=== PATIENT | male | born 1945 | race Caucasian/White ===

== ENCOUNTER 2017-10-29 07:00 | Inpatient (IN) | payer OTHER ==
[2017-10-05 10:30] VITALS: BMI 29.0
--- NOTE | 2017-10-05 11:12 | PAT Medication Instructions ---
Service Date Oct 05, 2017. Current Home Medication List Folic Acid (Folic Acid), 1 TAB PO Q2D [arthro 7], 1 TAB PO QAM Medication Instructions For Your Scheduled Surgery - Hold the following medications 2 weeks prior to surgery: [arthro 7], 1 TAB PO QAM - Hold the following medications the morning of surgery: Folic Acid (Folic Acid), 1 TAB PO Q2D If you have any questions please call us at [phone] or [phone] or [phone]
--- NOTE | 2017-10-05 11:54 | DIAGNOSTIC IMAGING REPORT ---
CHEST 2 VIEWS ROUTINE CLINICAL HISTORY: 72 years-old Male presenting with preoperative assessment. TECHNIQUE: PA and lateral views of the chest were obtained. COMPARISON: None. FINDINGS: Atherosclerosis of aortic arch. Mild prominence of the cardiac silhouette. Eventration of the right hemidiaphragm. Punctate hyperdense nodules bilaterally may represent calcified granulomas. Lungs and pleural spaces otherwise clear. Degenerative changes of the thoracic spine. Radiolucency in the left scapula may be projectional versus a lucent lesion. Upper abdomen normal. IMPRESSION: 1. Mild cardiomegaly suggested. Otherwise no acute cardiopulmonary disease. 2. Possible lucent lesion versus artifact in the left scapula. Electronically signed by: Quentin Brown M.D. 10/05/2017 11:52 AM Dictated Date/Time: 10/05/2017 11:50 AM
[2017-10-05 12:06] LABS: BASO % 0.3 %; BASO ABS # 0.03 K/uL (0-0.2); EOS % 0.5 %; EOS ABS # 0.05 K/uL (0-0.5); HEMATOCRIT 46.9 % (42-52); HEMOGLOBIN 16.5 g/dL (14.0-18.0); IG# 0.05 K/uL (0.00-0.02); LYMPH % 15.1 %; LYMPH ABS # 1.59 K/uL (1.2-3.4); MEAN CELL VOLUME 89.5 fL (80-100); MEAN CORPUSCULAR HEMOGLOBIN 31.5 pg (25-34); MEAN CORPUSCULAR HGB CONC 35.2 g/dl (32-36); MEAN PLATELET VOLUME 10.3 fL (7.4-10.4); MONO ABS # 1.47 K/uL (0.11-0.59); NEUT % 69.6 %; NEUT ABS # 7.33 K/uL (1.4-6.5); PLATELET COUNT 250 K/uL (130-400); RED CELL DISTRIBUTION WIDTH CV 12.6 % (11.5-14.5); RED CELL DISTRIBUTION WIDTH SD 40.9 fL (36.4-46.3); WHITE BLOOD COUNT 10.52 K/uL (4.8-10.8)
[2017-10-05 12:14] LABS: PTT PATIENT 28.5 SECONDS (21.0-31.0)
[2017-10-05 12:26] LABS: HEMOGLOBIN A1C 6.1 % (4.5-5.6)
[2017-10-05 13:59] LABS: ALBUMIN 3.6 gm/dl (3.4-5.0); CALCIUM 9.1 mg/dl (8.5-10.1); CREATININE 0.86 mg/dl (0.60-1.40)
--- NOTE | 2017-10-27 21:49 | History and Physical ---
History & Physical Date Oct 27, 2017. Chief Complaint Right knee pain History of Present Illness The patient is a 72 year old male with complaints of Right knee pain for several years. he has tried conservative therapy with no relief. he would like to proceed with a Right total knee arthroplasty Past Medical/Surgical History PMHx: sleep apnea, Shortness of breath, osteoarthritis, GERD, Benign prostate hypertrophy Additional History Hepatic Disease: No Endocrine Disorder: No Kidney Disease: No Hypertension: No Heart Disease: No Bleeding Tendencies: No Infectious Diseases: No Allergies Coded Allergies: No Known Allergies (Unverified , 10/05/17) Home Medications Scheduled Folic Acid (Folic Acid), 1 TAB PO Q2D [arthro 7], 1 TAB PO QAM Physical Examination Skin: warm/dry, no rash Eyes: normal inspection, EOMI ENT: normal ENT inspection Head: normocephalic, atraumatic Neck: supple, no adenopathy Respiratory/Chest: lungs clear, normal breath sounds Cardiovascular: regular rate, rhythm, no murmur Abdomen / GI: normal bowel sounds, non tender Extremities: normal inspection, + pertinent finding (medial joint line tenderness, ligaments intact decreased ROM and strength) Neurologic/Psych: no motor/sensory deficits, alert, oriented x 3 Diagnosis Primary osteoarthritis of right knee Plan of Treatment Patient is scheduled for a Right total knee arthroplasty. he has failed conservative therapy and would like to proceed with scheduled surgery. Risks and benefits were discussed with the patient and he understands the risks and wishes to proceed. All questions were answered. he will be placed on ASA 81mg BID for DVT prophylaxis. he would like to go to home with OPPT
[2017-10-29] VITALS (9 sets, daily range): BP systolic 98–152; BP diastolic 61–93; PULSE 79–103; TEMP 36.3–36.6; O2SAT 94–96; Ht 177.8 cm; Wt 93.3 kg
[~2017-10-29] VITALS: Ht 177.8 cm; Wt 93.3 kg
[~2017-10-29 07:00] MED LIST: ACETAMINOPHEN 500 MG TAB PO SCH; ARTHRO PO; BUPIVACAINE 0.25% 30 ML VIAL ONE; BUPIVACAINE 0.5 % 5 MG/1 ML PF 10ML VIAL ONE; DEXAMETHASONE 4 MG TAB PO SCH; FAMOTIDINE 20 MG TAB PO SCH; FLV1 PO; GABAPENTIN 300 MG CAP PO SCH; LACTATED RINGER'S 1000ML 1,000 ML IV SCH; LACTATED RINGER'S 1000ML 500 ML IV SCH; METOCLOPRAMIDE HCL 10 MG TAB PO SCH; OXYCODONE HCL 10 MG TABCR (OXYCONTIN) PO SCH
[2017-10-29] MEDS ORDERED: MIDAZOLAM HCL 1 MG/ML 2ML VIAL ONE ×2 (07:30→09:27)
[2017-10-29] MEDS ORDERED: FENTANYL CITRATE INJ 50 MCG/1 ML 2 ML VIAL ONE (07:30)
[2017-10-29] MEDS ORDERED: PROPOFOL IV EMULSION 10 MG/ML 20 ML VIAL IV ONE ×3 (07:30→09:59)
--- NOTE | 2017-10-29 07:53 | History & Physical Bridge Note ---
H&P Re-Evaluation Bridge Note: I have examined the patient, reviewed the History & Physical and in the interval since the performance of the History & Physical I have noted the following changes of clinical significance: No changes noted
[2017-10-29] MEDS ORDERED: NURSING VERBAL MED ORDER ONE (08:00)
[2017-10-29] MEDS ORDERED: EpHEDrine SULFATE INJ 50 MG/ML AMP IV PRN (08:15)
[2017-10-29] MEDS ORDERED: FENTANYL CITRATE INJ 50 MCG/1 ML 2 ML VIAL IV PRN (08:15)
[2017-10-29] MEDS ORDERED: ONDANSETRON INJ 2 MG/ML 2 ML VIAL IV PRN ×2 (08:15→11:30)
[2017-10-29] MEDS ORDERED: HYDROmorphone INJ 1 MG/ML SYR IV PRN (08:15)
[2017-10-29] MEDS ORDERED: ATROPINE SULFATE 0.1 MG/ML 5ML SYR IV PRN (08:15)
[2017-10-29] MEDS ORDERED: BACITRACIN 50000 UNIT VIAL ONE (08:45)
[2017-10-29] MEDS ORDERED: POVIDONE-IODINE OP SOLN 30 ML BTL ONE (08:45)
[2017-10-29] MEDS: TRANEXAMIC ACID INJ 1,000 MG in SYRINGE 0 ML IV SCH ×2 (08:56→12:52)
[2017-10-29] MEDS: CEFAZOLIN 2000MG IV PUSH 10 ML IV SCH ×2 (09:21→16:01)
[2017-10-29] MEDS ORDERED: ROPIVACAINE 5MG/ML 30 ML 150 MG, BUPIVACAINE 0.5% MPF INJ 30 ML, EpINEphrine HCL INJ 0.... INFIL SCH ×8 (09:30)
[2017-10-29] MEDS ORDERED: PHENYLEPHRINE 100MCG/ML 5ML SYR ONE (10:05)
[2017-10-29] MEDS ORDERED: EpHEDrine SULFATE 50MG/5ML SYR ONE (10:05)
--- NOTE | 2017-10-29 10:55 | [facility] Operative Report ---
Operative Report Operative Date Oct 29, 2017. Pre-Operative Diagnosis Primary osteoarthritis of the right knee Post-Operative Diagnosis Primary osteoarthritis of the right knee Procedure(s) Performed Right total knee arthroplasty Surgeon Dr. Melo Wreath Maker Surgeon(s) Nwe Millard PA-C Estimated Blood Loss 5cc Findings as above Specimens A. Right knee bone and tissue Drains 2 hemovac Anesthesia spinal Complication(s) None Disposition Recovery Room / PACU Indications The patient is a 72 mL male with end-stage arthritis the right knee. He is bone -on-bone in all 3 compartments. He has failed conservative measures including anti-inflammatories and injection. He wishes to proceed with right total knee arthroplasty. Description of Procedure Risks benefits and alternatives of surgery including but not limited to infection, DVT, pain, stiffness, need for surgery, damage to blood vessels, damage to nerves or risks of anesthesia were discussed with the patient and they wished to proceed. The patient was identified and the laterality was confirmed and marked. They received a preoperative antibiotic as well as a spinal anesthetic and an abductor canal block. A well-padded tourniquet was applied and then the limb was prepped and draped in standard manner with ChloraPrep. The limb was exsanguinated and the tourniquet was inflated. I made a standard anterior incision. I sharply incised the skin then utilized Bovie electrocautery as well as the aqua mantis to achieve hemostasis. I made a medial parapatellar arthrotomy and mobilized the patella laterally. I then excised the anterior horns of the medial and lateral meniscus as well as the infrapatellar fat pad. I elevated a portion of the MCL off of the tibia. I then pinned into place a patient-matched distal femoral cutting guide and made my distal femoral resection. I then pinned into place the 5 in 1 femoral cutting guide. I made my anterior, posterior and chamfer cuts. I then excised the cruciates and the remaining portions of the menisci. I then pinned into place a patient- matched tibial cutting guide and made my tibial resection. I then pinned into place the tibial plate a utilizing alignment eliu to confirm rotation. I then cut for the post. Utilizing a lamina seismograph helper and I then removed posterior osteophytes off the femur. I then placed a trial femur into position and cut for the trochlear component. I then sequentially trialed to size the polyethylene until there was good soft tissue balancing and range of motion. I then prepared the patella with a freehand cut utilizing sagittal saw. I sized and drilled for the patella. There was good tracking to the patella no lateral release was needed. All the trial components were removed. The deep tissues were anesthetized with an ortho mix solution. Then with Simplex HV with gentamicin cement, I cemented my definitive components. Definitive components, [employer] Journey 2: Femur 7 Tibia 7 Poly 12 Patella 38 oval A betadine soak was performed. A deep drain was placed. The arthrotomy was closed with interrupted #1 Vicryl suture subcutaneous tissue was closed with interrupted 2-0 Vicryl suture. The skin was closed with with marcus. A Silverlon was placed. Sterile dressings were applied. All needle and sponge counts were correct at the end of the procedure patient was transferred to the PACU in stable condition without apparent complication. The PA-C was necessary for assistance with procedure for assistance in positioning, prepping, draping, retraction and closure. I attest to the content of the Intraoperative Record and any orders documented therein. Any exceptions are noted below.
[2017-10-29] MEDS ORDERED: ALUMINUM/MAGNESIUM/SIMETH (MAALOX MAX) 30 ML UDC PO PRN (11:30)
[2017-10-29] MEDS ORDERED: CEFAZOLIN IV 2,000 MG in DEXTROSE 5% 50ML 50 ML IV SCH (11:30)
[2017-10-29] MEDS ORDERED: TRAMADOL HCL 50 MG TAB PO PRN (11:30)
[2017-10-29] MEDS ORDERED: MoRPHine SULFATE 2 MG/ML CARP IV PRN (11:30)
[2017-10-29] MEDS ORDERED: MoRPHine SULFATE 4 MG/ML 1 ML CARP\\VIAL IV PRN (11:30)
[2017-10-29] MEDS ORDERED: MAGNESIUM HYDROXIDE SUSP 30 ML UDC PO PRN (11:30)
--- NOTE | 2017-10-29 11:47 | DIAGNOSTIC IMAGING REPORT ---
R KNEE 1 OR 2 VIEWS ROUTINE CLINICAL HISTORY: AP/LATERAL IN PACU RIGHT KNEE COMPARISON: None. DISCUSSION: Ancef alignment status post right knee replacement. Good contact between prosthetic and underlying bone. Surgical drains are in position. Expected postoperative soft tissue change. IMPRESSION: Anatomic alignment status post total right knee arthroplasty. The above report was generated using voice recognition software. It may contain grammatical, syntax or spelling errors. Electronically signed by: Ubaldo Jeff M.D. 10/29/2017 11:46 AM Dictated Date/Time: 10/29/2017 11:45 AM
--- NOTE | 2017-10-29 11:53 | Anesthesiology Progress Note ---
Anesthesia Post Op Note Date & Time Oct 29, 2017 at 11:53 Vital Signs Pain Intensity: 0 Vital Signs Past 12 Hours Date Time Temp Pulse Resp B/P (MAP) Pulse Ox O2 Delivery O2 Flow Rate FiO2 10/29/17 11:45 79 16 106/71 94 Nasal Cannula 2 10/29/17 11:35 77 16 112/75 98 Nasal Cannula 2 10/29/17 11:25 81 16 111/65 98 Oxymask 10 10/29/17 11:19 36. 84 16 113/75 95 Oxymask 10 10/29/17 07:29 36.3 92 16 131/93 95 Room Air Notes Mental Status: alert / awake / arousable, participated in evaluation Pt Amnestic to Procedure: Yes Nausea / Vomiting: adequately controlled Pain: adequately controlled Airway Patency, RR, SpO2: stable & adequate BP & HR: stable & adequate Hydration State: stable & adequate Neuraxial Anesthesia: was administered, sensory block is resolving Anesthetic Complications: no major complications apparent
--- NOTE | 2017-10-29 13:20 | Discharge Instructions ---
Discharge Instructions Date of Service Oct 29, 2017. Admission Reason for Admission: Right Knee Osteoarthritis Discharge Discharge Diagnosis / Problem: S/P Right total knee arthroplasty Discharge Goals Goal(s): Decrease discomfort, Improve function Activity Recommendations Activity Limitations: per Instructions/Follow-up section . Instructions / Follow-Up Instructions / Follow-Up ACTIVITY RECOMMENDATIONS: SELF CARE INSTRUCTIONS AFTER TOTAL KNEE REPLACEMENT A. You may need to continue a physical therapy program after discharge from the hospital. There are several options available to you. Your doctor will assist you in selecting the best one for you. 1. An out-patient facility 2 to 3 times a week for therapy or home therapy. 2. Continue working on all exercises taught to you in the hospital. Your goals should be to increase bending of your knee to 90 degrees and beyond and to fully straighten your knee. B. You may progress at your own pace from walking with a walker or crutches to a cane; then to no assistive devices. C. Make walking a part of your daily routine. Be up as much as comfortable with rest periods throughout the day. Rest with leg elevation is very important. Use the ice wrap frequently for the first 3-4 weeks. D. There are no restrictions on activities. You may ride in a car, shop, participate in auto parts clerk and all social activities. E. Wear the long elastic stockings (DENISE hose) 20 hours a day for 2 weeks after surgery. They can be removed several times a day for laundering and for a bath. F. You may shower, no tub baths until cleared by your doctor. SPECIAL CARE INSTRUCTIONS: VERY IMPORTANT TO READ AND REVIEW A. There are a few signs you need to watch for after you are home. Call [facility] if you notice any of the followin. Increased severe knee pain. Some pain is expected especially when you exercise. 2. Increased swelling in your leg or knee; pain or swelling of the calf muscle in either lower leg. 3. Any fluid drainage from the incision. 4. Shortness of breath or chest pain. B. Please call [facility] at if you have any concerns or questions about your operation or recovery. The doctor or his nurse will return your call promptly. C. You must take antibiotics before dental work, bladder, bowel or other surgery. Your doctor will provide you with a permanent care to carry describing this precaution. IMPORTANT: * REMEMBER TO TAKE ASPIRIN, 81 MG, TWICE DAILY FOR 4 WEEKS UNLESS OTHERWISE DIRECTED. THIS IS YOUR BLOOD THINNER. * CALL IF INCREASED PAIN, REDNESS, DRAINAGE OR FEVER GREATER THAT 101. * WEAR DENISE HOSE 20 HOURS PER DAY FOR 2 WEEKS. * YOU MAY HAVE A LARGE BAND-AID LIKE DRESSING (SILVERON). THIS WILL REMAIN ON YOUR INCISION FOR 7 DAYS, THEN CAN BE REMOVED. IF INCISION IS LEAKING THROUGH DRESSING, CALL THE OFFICE . FOLLOW UP VISIT: If appointment is not already scheduled: Please call [facility] to make a follow-up appointment for 2 weeks after your surgery with Dr. Melo or his PA at . Current Hospital Diet Patient's current hospital diet: Regular Diet Discharge Diet Recommended Diet: Regular Diet Procedures Procedures Performed: Right total knee arthroplasty Pending Studies Studies pending at discharge: no Laboratory Results Hemoglobin A1c Test 10/05/17 11:24 Range/Units Estimated Average Glucose 128 mg/dl Hemoglobin A1c 6.1 H 4.5-5.6 % Medical Emergencies . Who to Call and When: Medical Emergencies: If at any time you feel your situation is an emergency, please call 911 immediately. . Non-Emergent Contact Non-Emergency issues call your: Surgeon Call Non-Emergent contact if: temperature is above 101.5, your pain is worsening, wound has increased drainage, wound has increased redness . "Provider Documentation" section prepared by Raf Stacy. . VTE Core Measure Inpt VTE Proph given/why not?: Other Anticoagulation (Aspirin 81mg BID) [place] Drug Monitoring Program Search Results: patient reviewed within database, no issues identified
[2017-10-29] MEDS ORDERED: RXC5 PO (13:27)
[2017-10-29] MEDS: D5W AND 1/2NSS + 20MEQ KCL 1,000 ML IV SCH ×2 (14:18→23:40)
[2017-10-29] MEDS: ACETAMINOPHEN 500 MG TAB PO SCH ×2 (14:38→21:31)
[2017-10-29] MEDS ORDERED: INFLUENZA ADMINISTRATION CHARGE ONE (16:00)
[2017-10-29] MEDS ORDERED: INFLUENZA VIRUS QUAD VACCINE 0.5 ML SYR IM. ONE (16:00)
[2017-10-29] MEDS: CEFAZOLIN IV 2,000 MG in SYRINGE 0 ML IV SCH ×2 (16:11→23:40)
[2017-10-29] MEDS: OXYCODONE HCL IR 5 MG TAB (IMMEDIATE RELEASE) PO PRN ×2 (17:15→20:58)
[2017-10-29] MEDS: FERROUS GLUCONATE 324 MG TAB PO SCH (18:22)
[2017-10-29] MEDS: SENNA 8.6 MG TAB PO SCH (21:30)
[2017-10-29] MEDS: DOCUSATE SODIUM 100 MG CAP PO SCH (21:30)
[2017-10-29] MEDS: ASPIRIN 81 MG ECTAB PO SCH (21:30)
[2017-10-29] MEDS: CeleBREX 200 MG CAP PO SCH (21:31)
[2017-10-30 03:43] VITALS: BP 126/73; PULSE 68; TEMP 36.5; O2SAT 95
[2017-10-30] MEDS: ACETAMINOPHEN 500 MG TAB PO SCH ×3 (06:00→21:56)
[2017-10-30 06:20] LABS: HEMATOCRIT 39.1 % (42-52); HEMOGLOBIN 13.7 g/dL (14.0-18.0); MEAN CELL VOLUME 87.9 fL (80-100); MEAN CORPUSCULAR HEMOGLOBIN 30.8 pg (25-34); MEAN PLATELET VOLUME 10.5 fL (7.4-10.4); PLATELET COUNT 207 K/uL (130-400); RED CELL DISTRIBUTION WIDTH CV 12.8 % (11.5-14.5); RED CELL DISTRIBUTION WIDTH SD 41.4 fL (36.4-46.3); WHITE BLOOD COUNT 15.53 K/uL (4.8-10.8)
[2017-10-30 07:00] LABS: CALCIUM 8.9 mg/dl (8.5-10.1); CREATININE 0.83 mg/dl (0.60-1.40); POTASSIUM 4.3 mmol/L (3.5-5.1)
--- NOTE | 2017-10-30 07:02 | Orthopedic Progress Note ---
Orthopedic Progress Note Date of Service Oct 30, 2017. Subjective Post OP Day: 1 Reports: feeling well, pain controlled w PO medications, Denies: complaints, chest pain, SOB, nausea / vomiting, calf pain Objective calves soft nontender, N/V intact, capillary refill less than 2 sec., dressing C /D/I, A&O x3, toes mobile, hemovac drainage (400cc/225cc) Date Time Temp Pulse Resp B/P (MAP) Pulse Ox O2 Delivery O2 Flow Rate FiO2 10/30/17 03:43 36.5 68 16 126/73 (90) 95 Room Air 10/29/17 23:07 36.6 85 18 146/85 (105) 94 Room Air 10/29/17 19:52 36.5 103 18 152/87 (108) 96 Room Air 10/29/17 19:50 Room Air 10/29/17 15:24 36.3 93 18 135/83 (100) 96 Nasal Cannula 2.5 10/29/17 15:15 96 Room Air 10/29/17 14:24 91 12 135/74 (94) 96 Nasal Cannula 3.0 10/29/17 13:33 36.4 89 19 124/67 (86) 94 Nasal Cannula 2.0 10/29/17 12:58 36.6 79 18 104/61 (75) 95 Nasal Cannula 2.0 10/29/17 12:20 36.5 81 18 98/61 (73) 96 Nasal Cannula 3.0 10/29/17 12:20 96 Nasal Cannula 3.0 10/29/17 12:20 96 Nasal Cannula 3.0 10/29/17 11:55 36.7 77 16 121/72 95 Nasal Cannula 2 10/29/17 11:45 79 16 106/71 94 Nasal Cannula 2 10/29/17 11:35 77 16 112/75 98 Nasal Cannula 2 10/29/17 11:25 81 16 111/65 98 Oxymask 10 10/29/17 11:19 36. 84 16 113/75 95 Oxymask 10 10/29/17 07:29 36.3 92 16 131/93 95 Room Air Laboratory Results 24 Hours: Test 10/30/17 05:55 Hematocrit 39.1 % Hemoglobin 13.7 g/dL Assessment & Plan Assessment: POD#1 Right TKA Plan: DVT - ASA Medical Management PT/OT Discharge - due to too much drainage he will not be discharged today. Hopeful for discharge tomorrow home with OPPT.
[2017-10-30 07:56] VITALS: BP 154/82; PULSE 64; TEMP 36.5; O2SAT 96
[2017-10-30] MEDS: FERROUS GLUCONATE 324 MG TAB PO SCH ×3 (08:36→17:51)
[2017-10-30] MEDS: DOCUSATE SODIUM 100 MG CAP PO SCH ×2 (08:37→20:49)
[2017-10-30] MEDS: ASPIRIN 81 MG ECTAB PO SCH ×2 (08:37→20:48)
[2017-10-30] MEDS: MULTIVITAMIN TAB PO SCH (08:37)
[2017-10-30] MEDS: CeleBREX 200 MG CAP PO SCH ×2 (08:37→20:48)
[2017-10-30 08:42] VITALS: O2SAT 96
[2017-10-30] MEDS: D5W AND 1/2NSS + 20MEQ KCL 1,000 ML IV SCH (08:52)
[2017-10-30] MEDS: OXYCODONE HCL IR 5 MG TAB (IMMEDIATE RELEASE) PO PRN ×2 (11:12→17:53)
[2017-10-30 12:00] VITALS: BP 130/74; PULSE 73; TEMP 36.5; O2SAT 93
[2017-10-30 14:58] VITALS: BP 165/90; PULSE 85; TEMP 36.4; O2SAT 98
[2017-10-30] MEDS: SENNA 8.6 MG TAB PO SCH (20:48)
[2017-10-30 22:54] VITALS: BP 146/84; PULSE 72; TEMP 36.7; O2SAT 94
[2017-10-31] MEDS: OXYCODONE HCL IR 5 MG TAB (IMMEDIATE RELEASE) PO PRN ×3 (00:33→10:47)
[2017-10-31] MEDS: ACETAMINOPHEN 500 MG TAB PO SCH (05:28)
--- NOTE | 2017-10-31 06:18 | Orthopedic Progress Note ---
Orthopedic Progress Note Date of Service Oct 31, 2017. Subjective Post OP Day: 2 Reports: feeling well, pain controlled w PO medications, Denies: complaints, chest pain, SOB, nausea / vomiting, light headedness, calf pain Objective calves soft nontender, N/V intact, capillary refill less than 2 sec., dressing C /D/I (silverlon intact), A&O x3, toes mobile Date Time Temp Pulse Resp B/P (MAP) Pulse Ox O2 Delivery O2 Flow Rate FiO2 10/30/17 23:05 Room Air 10/30/17 22:54 36.7 72 18 146/84 (104) 94 Room Air 10/30/17 15:50 Room Air 10/30/17 14:58 36.4 85 18 165/90 (115) 98 Room Air 10/30/17 12:00 36.5 73 22 130/74 (92) 93 Room Air 10/30/17 08:42 96 Room Air 10/30/17 08:07 Room Air 10/30/17 07:56 36.5 64 20 154/82 (106) 96 Room Air Assessment & Plan Assessment: POD#2 Right TKA Plan: DVT - ASA Medical Management PT/OT Discharge - will d/c home later today after PT Discharge Planning Discharge Planning: home with oppt DVT Prophylaxis: TEDs, SCDs, ASA Therapy: Physical Therapy
[2017-10-31] MEDS ORDERED: ASPEC81 PO (06:20)
[2017-10-31] MEDS ORDERED: ONDA8TAB6 PO (06:20)
[2017-10-31] MEDS ORDERED: CLB200 PO (06:20)
[2017-10-31] MEDS ORDERED: CLC100 PO (06:20)
[2017-10-31] MEDS ORDERED: ACET-24 PO (06:20)
[2017-10-31 06:33] VITALS: BP 161/86; PULSE 65; TEMP 36.7; O2SAT 97
[2017-10-31] MEDS: DOCUSATE SODIUM 100 MG CAP PO SCH (07:43)
[2017-10-31] MEDS: ASPIRIN 81 MG ECTAB PO SCH (07:43)
[2017-10-31] MEDS: FERROUS GLUCONATE 324 MG TAB PO SCH (07:43)
[2017-10-31] MEDS: CeleBREX 200 MG CAP PO SCH (07:43)
[2017-10-31] MEDS: MULTIVITAMIN TAB PO SCH (07:44)
[2017-10-31 09:00] VITALS: BP 138/73; PULSE 76; O2SAT 98
[2017-10-31 09:10] VITALS: BP 138/73; PULSE 76; TEMP 36.7; O2SAT 98
--- NOTE | 2017-11-02 14:18 | DISCHARGE SUMMARY ---
DISCHARGE DIAGNOSIS: Degenerative joint disease, right knee. SECONDARY DIAGNOSES: Sleep apnea, osteoarthritis, gastroesophageal reflux disease, benign prostatic hypertrophy, and shortness of breath. CONSULTS: None. COMPLICATIONS: None. PROCEDURE: Right total knee arthroplasty performed by Dr. Melo on 10/29/2017. BRIEF HISTORY: As dictated in the history and physical. HOSPITAL SUMMARY: The patient was admitted on the above-noted date and had the above-noted surgery performed, which he tolerated well. On the first postoperative day, the patient was feeling well and pain was controlled and he had no complaints. Calves were soft, nontender, and neurovascularly intact. Dressings clean, dry and intact. Toes were mobile. Vital signs stable and he was afebrile and hemoglobin was 13.7. He was started on physical therapy protocol and continued on DVT prophylaxis and pain management. By his second postoperative day, he was feeling well, pain was controlled and he had no complaints. Silverlon dressing was intact. Toes were mobile. Calves were soft and nontender, and neurovascularly intact. He was progressing well with his physical therapy. Vital signs were remaining stable and it was felt he could be discharged to home. For further review, please see chart. LAB AND X-RAY DATA: As per chart. DISCHARGE INSTRUCTIONS: The patient was discharged to home in satisfactory condition on 10/31/2017. DIET: Regular. ACTIVITY: Follow TKA instruction sheets and special care instructions as noted. Follow up with Dr. Melo in 2 weeks. The patient is to call for an appointment if one has not been made for you. DISCHARGE MEDICATIONS: Acetaminophen 1000 mg p.o. q. 8 hours, aspirin 81 mg p.o. b.i.d., Celebrex 200 mg p.o. b.i.d. for 30 days, Colace 100 mg p.o. b.i.d. for 10 days, Zofran 8 mg p.o. q. 8 hours p.r.n. nausea, and oxycodone 5-10 mg p.o. q. 4 hours p.r.n. Resume home meds as listed and stop taking Arthro-7.
== END 2017-10-31 11:06 | disposition home or self-care (01) | DRG 470 ==
LOC: C.ACU 07:00 → C.3E 07:50 → ENRESERV 11:49
PROVIDERS: ADMIT Orthopaedic Surgery; ATTEND Orthopaedic Surgery
PROC: 0SRC0J9 Replacement of Right Knee Joint with Synthetic Substitute, Cemented, Open Approach (ICD-10-PCS; principal; 2017-10-29 09:15)
DX: M17.11 Unilateral primary osteoarthritis, right knee (principal); G47.33 Obstructive sleep apnea (adult) (pediatric)

== ENCOUNTER 2018-02-19 06:15 | Inpatient (IN) | payer OTHER ==
--- NOTE | 2018-01-25 10:05 | HISTORY & PHYSICAL EXAMINATION ---
DATE OF ADMISSION: 02/19/2018 CHIEF COMPLAINT: Left knee pain. HISTORY OF PRESENT ILLNESS: The patient is a 72-year-old male that complains of left knee pain for several years. He has tried conservative therapy with no relief. He would like to proceed with a left total knee arthroplasty. PAST MEDICAL HISTORY: Significant for sleep apnea, shortness of breath, osteoarthritis, GERD and benign prostate hypertrophy. PAST SURGICAL HISTORY: Significant for varicose veins of the left leg, carpal tunnel and right knee replacement. SOCIAL HISTORY: He denies alcohol. Denies smoking or tobacco use. Denies IV or illegal drug use. FAMILY HISTORY: Noncontributory. REVIEW OF SYSTEMS: He denies headache, fevers, chills, double vision, blurry vision, sore throat, cough, chest pain, nausea, vomiting, diarrhea, constipation, numbness, tingling, tired and urinary difficulties, thoughts to harm himself or harm others and/or depression. He is positive for joint pain and joint stiffness of the left knee. ALLERGIES: No known drug allergies. MEDICATIONS: Mobic and Oxycodone as needed for pain. PHYSICAL EXAMINATION: GENERAL APPEARANCE: The patient is a 72-year-old male sitting in no acute distress. He is well dressed, well nourished. He is awake, alert and oriented x3. VITAL SIGNS: He is 5 feet 10 inches tall, 204 pounds, blood pressure 126/70. HEENT: Normocephalic, atraumatic. Extraocular movements are intact. Mucosa is moist. No septal deviation. NECK: Supple, no lymphadenopathy, no JVD, no thyromegaly. HEART: Regular rate and rhythm. No murmurs or gallops. LUNGS: Clear to auscultation with no wheezing or rhonchi. ABDOMEN: Soft, nontender, nondistended. Normal bowel sounds, no hepatosplenomegaly. EXTREMITIES: Paying particular attention to the left knee, he does have medial joint line tenderness. Ligaments are intact. Strength and range of motion are within normal limits. NEUROLOGIC: Cranial nerves II-XII are intact. Pulses were compared bilaterally and were equal. IMAGING: X-rays of his left knee demonstrated medial joint line narrowing with osteophyte formation and subchondral sclerosis. IMPRESSION: Primary osteoarthritis of the left knee. PLAN: The patient is scheduled for a left total knee arthroplasty. He has failed conservative therapy and would like to proceed with the scheduled surgery. Risks and benefits were discussed with the patient. He understands these risks and he wishes to proceed. All questions were answered to his satisfaction. He will be placed on aspirin 81 mg b.i.d. for DVT prophylaxis and he would like to go home with outpatient physical therapy. NETO
[2018-01-25 10:29] VITALS: BMI 29.0
--- NOTE | 2018-01-25 11:04 | PAT Medication Instructions ---
Service Date Jan 25, 2018. Current Home Medication List Aspirin (Aspirin Ec), 81 MG PO QAM Ergocalciferol (Vitamin D 06055 Unit), 50,000 UNIT PO WK Meloxicam (Meloxicam), 1 TAB PO QAM [arthro seven], 1 TAB PO QAM Medication Instructions For Your Scheduled Surgery -Continue as directed: Ergocalciferol (Vitamin D 54848 Unit), 50,000 UNIT PO WK -Contact your surgeon for instructions for: Meloxicam (Meloxicam), 1 TAB PO QAM - Hold the following medications 2 weeks prior to surgery: [arthro seven], 1 TAB PO QAM - Take the following medications the morning of surgery with a sip of water: Aspirin (Aspirin Ec), 81 MG PO QAM If you have any questions please call us at [phone] or [phone] or [phone]
--- NOTE | 2018-01-25 11:55 | DIAGNOSTIC IMAGING REPORT ---
CERVICAL SPINE 2 OR 3 VIEWS CLINICAL HISTORY: 72 years-old Male presenting with pre-op, RA; lateral neutral, flexion, extension. TECHNIQUE: Lateral views of the cervical spine in neutral, flexion, and extension positioning were obtained. COMPARISON: None. FINDINGS: On neutral positioning, straightening of normal cervical lordosis in the lower cervical spine, likely due to multilevel degenerative changes with a lower cervical predominance. Vertebral bodies maintain normal height and alignment. Intervertebral disc height loss at C5-6 and C6-7, where there are disc osteophyte complexes, no significant posterior bony spurring. No subluxation or radiographic evidence of acute fracture. 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 Normal predental interval. No prevertebral soft tissue swelling. The atlantodental interval demonstrates only minimal degenerative change. On flexion positioning, no subluxation. On extension positioning, similarly, no subluxation. IMPRESSION: 1. No subluxation on flexion or extension positioning. 2. Only minimal degenerative change of the lateral dental interval. 3. Disc osteophyte complexes at C5-6 and C6-7. Electronically signed by: Quentin Brown M.D. 01/25/2018 11:54 AM Dictated Date/Time: 01/25/2018 11:52 AM
[2018-01-25 12:01] LABS: MEAN CORPUSCULAR HGB CONC 34.4 g/dl (32-36); MEAN PLATELET VOLUME 10.9 fL (7.4-10.4); PLATELET COUNT 244 K/uL (130-400)
[2018-01-25 12:48] LABS: HEMOGLOBIN 15.5 g/dL (14.0-18.0); MEAN CELL VOLUME 87.4 fL (80-100); MEAN CORPUSCULAR HEMOGLOBIN 30.1 pg (25-34); RED CELL DISTRIBUTION WIDTH CV 13.7 % (11.5-14.5); RED CELL DISTRIBUTION WIDTH SD 43.9 fL (36.4-46.3); WHITE BLOOD COUNT 7.22 K/uL (4.8-10.8)
[2018-01-25 13:25] LABS: HEMOGLOBIN A1C 5.9 % (4.5-5.6)
[2018-01-25 14:23] LABS: ALBUMIN 3.9 gm/dl (3.4-5.0); CALCIUM 9.1 mg/dl (8.5-10.1); CREATININE 0.69 mg/dl (0.60-1.40); POTASSIUM 4.3 mmol/L (3.5-5.1)
[2018-01-25 14:26] LABS: TOTAL PROTEIN 7.6 gm/dl (6.4-8.2)
[~2018-02-19] VITALS: Ht 177.8 cm; Wt 92.9 kg
[2018-02-19] VITALS (8 sets, daily range): BP systolic 111–145; BP diastolic 72–89; PULSE 63–80; TEMP 36.4–36.6; O2SAT 92–96; Ht 177.8 cm; Wt 92.9 kg
[~2018-02-19 06:15] MED LIST changes: -ARTHRO PO; +ASPI81TA28 PO; -BUPIVACAINE 0.25% 30 ML VIAL ONE; -BUPIVACAINE 0.5 % 5 MG/1 ML PF 10ML VIAL ONE; +CEFAZOLIN 2000MG IV PUSH 15 ML IV SCH; +CeleBREX 200 MG CAP PO SCH; +ERGO500037 PO; -FLV1 PO; +LIDOCAINE HCL 2% 2 ML VIAL (20MG/ML) ONE; +MELO-83 PO; +PROPOFOL IV EMULSION 10 MG/ML 20 ML VIAL IV ONE; +ROPIVACAINE 5MG/ML 30 ML 150 MG, BUPIVACAINE 0.5% MPF INJ 30 ML, EpINEphrine HCL INJ 0.... INFIL SCH; +[UNRECOGNIZED DRUG - OTHER] PO
[2018-02-19] MEDS: TRANEXAMIC ACID INJ 1,000 MG x 2 Bags IV SCH ×4 (06:30→09:25)
[2018-02-19] MEDS ORDERED: ROPIVACAINE 0.5% 5 MG/ML 30 ML VIAL ONE (06:36)
[2018-02-19] MEDS ORDERED: BUPIVACAINE 0.5 % 5 MG/1 ML PF 10ML VIAL ONE (06:36)
[2018-02-19] MEDS ORDERED: CeleBREX 200 MG CAP ONE (07:22)
[2018-02-19] MEDS ORDERED: METOCLOPRAMIDE HCL 10 MG TAB PO ONE (07:23)
[2018-02-19] MEDS ORDERED: FAMOTIDINE 20 MG TAB ONE (07:23)
[2018-02-19] MEDS ORDERED: GABAPENTIN 300 MG CAP PO ONE (07:23)
[2018-02-19] MEDS ORDERED: OXYCODONE HCL 10 MG TABCR (OXYCONTIN) PO ONE (07:23)
[2018-02-19] MEDS ORDERED: ACETAMINOPHEN 500 MG TAB PO ONE (07:23)
[2018-02-19] MEDS ORDERED: CEFAZOLIN SOD 2000MG/15 ML IV PUSH IV ONE (07:23)
[2018-02-19] MEDS ORDERED: DEXAMETHASONE 4 MG TAB ONE (07:23)
[2018-02-19] MEDS ORDERED: MIDAZOLAM HCL 1 MG/ML 2ML VIAL ONE (08:54)
[2018-02-19] MEDS ORDERED: POVIDONE-IODINE OP SOLN 30 ML BTL ONE (09:36)
[2018-02-19] MEDS ORDERED: BACITRACIN 50000 UNIT VIAL ONE (09:36)
[2018-02-19] MEDS ORDERED: LABETALOL HCL IV 5 MG/ML 20ML IV PRN (11:00)
[2018-02-19] MEDS ORDERED: ONDANSETRON INJ 2 MG/ML 2 ML VIAL IV PRN ×2 (11:00→11:30)
[2018-02-19] MEDS ORDERED: EpHEDrine SULFATE INJ 50 MG/ML AMP IV PRN (11:00)
[2018-02-19] MEDS ORDERED: HYDROmorphone INJ 2 MG/ML SYR/VIAL IV PRN (11:00)
[2018-02-19] MEDS ORDERED: ATROPINE SULFATE 0.1 MG/ML 5ML SYR IV PRN (11:00)
[2018-02-19] MEDS ORDERED: FENTANYL CITRATE INJ 50 MCG/1 ML 2 ML VIAL IV PRN (11:00)
[2018-02-19] MEDS ORDERED: MEPERIDINE HCL 25 MG/ML CARP IV PRN (11:00)
--- NOTE | 2018-02-19 11:25 | [facility] Operative Report ---
Operative Report Operative Date Feb 19, 2018. Pre-Operative Diagnosis Primary Osteoarthritis of the Left Knee Post-Operative Diagnosis same as preop Procedure(s) Performed Left total knee arthroplasty Surgeon Dr. Quentin Melo [place] Surgeon(s) [place] PA-C Estimated Blood Loss 20 ml Specimens Permanent: A. Left Knee Bone and Tissue Drains 2 hemovac Anesthesia Type MAC Spinal Regional Complication(s) none Disposition Recovery Room / PACU Indications The patient is a 72-year-old male with long-standing osteoarthritis of the left knee. He has failed conservative measures including injection anti- inflammatories and rehab. He is [id number] in his x-rays and wishes to need with a left total knee arthroplasty Description of Procedure Risks benefits and alternatives of surgery including but not limited to infection, DVT, pain, stiffness, need for surgery, damage to blood vessels, damage to nerves or risks of anesthesia were discussed with the patient and they wished to proceed. The patient was identified and the laterality was confirmed and marked. They received a preoperative antibiotic as well as a spinal anesthetic and an abductor canal block. A well-padded tourniquet was applied and then the limb was prepped and draped in standard manner with ChloraPrep. The limb was exsanguinated and the tourniquet was inflated. I made a standard anterior incision. I sharply incised the skin then utilized Bovie electrocautery as well as the aqua mantis to achieve hemostasis. I made a medial parapatellar arthrotomy and mobilized the patella laterally. I then excised the anterior horns of the medial and lateral meniscus as well as the infrapatellar fat pad. I elevated a portion of the MCL off of the tibia. I then pinned into place a patient-matched distal femoral cutting guide and made my distal femoral resection. I then pinned into place the 5 in 1 femoral cutting guide. I made my anterior, posterior and chamfer cuts. I then excised the cruciates and the remaining portions of the menisci. I then pinned into place a patient- matched tibial cutting guide and made my tibial resection. I then pinned into place the tibial plate a utilizing alignment eliu to confirm rotation. I then cut for the post. Utilizing a lamina mica spreader and I then removed posterior osteophytes off the femur. I then placed a trial femur into position and cut for the trochlear component. I then sequentially trialed to size the polyethylene until there was good soft tissue balancing and range of motion. I then prepared the patella with a freehand cut utilizing sagittal saw. I sized and drilled for the patella. There was good tracking to the patella no lateral release was needed. All the trial components were removed. The deep tissues were anesthetized with an ortho mix solution. Then with Simplex HV with gentamicin cement, I cemented my definitive components. Definitive components, [employer] 2: Femur 7 Tibia 7 Poly 10 Patella 38 oval A betadine soak was performed. A deep drain was placed. The arthrotomy was closed with interrupted #1 Vicryl suture subcutaneous tissue was closed with interrupted 2-0 Vicryl suture. The skin was closed with with marcus. A Silverlon was placed. Sterile dressings were applied. All needle and sponge counts were correct at the end of the procedure patient was transferred to the PACU in stable condition without apparent complication. The PA-C was necessary for assistance with procedure for assistance in positioning, prepping, draping, retraction and closure. I attest to the content of the Intraoperative Record and any orders documented therein. Any exceptions are noted below.
[2018-02-19] MEDS ORDERED: METOCLOPRAMIDE HCL INJ 5 MG/ML 2 ML VIAL IV PRN (11:30)
[2018-02-19] MEDS ORDERED: MoRPHine SULFATE 2 MG/ML CARP IV PRN (11:30)
[2018-02-19] MEDS ORDERED: DiphenhydrAMINE HCL 50 MG/ML VIAL IV PRN (11:30)
[2018-02-19] MEDS ORDERED: ALUMINUM/MAGNESIUM/SIMETH (MAALOX MAX) 30 ML UDC PO PRN (11:30)
[2018-02-19] MEDS ORDERED: CEFAZOLIN IV 2,000 MG in DEXTROSE 5% 50ML 50 ML IV SCH (11:30)
[2018-02-19] MEDS ORDERED: MAGNESIUM HYDROXIDE SUSP 30 ML UDC PO PRN (11:30)
[2018-02-19] MEDS ORDERED: KETOROLAC TROMETHAMINE 15 MG/ML VIAL IV. PRN (11:30)
[2018-02-19] MEDS ORDERED: LIDOCAINE HCL 2% 2 ML VIAL (20MG/ML) ONE (11:45)
[2018-02-19] MEDS ORDERED: PROPOFOL IV EMULSION 10 MG/ML 20 ML VIAL IV ONE (11:45)
--- NOTE | 2018-02-19 12:38 | DIAGNOSTIC IMAGING REPORT ---
LEFT KNEE 2 VIEWS History: Left total knee arthroplasty. Degenerative arthritis. Postop. FINDINGS: The patient is status post a left total knee arthroplasty. The hardware is intact. No fracture or dislocation. Skin marcus and surgical drains are in place. IMPRESSION: Left total knee arthroplasty. No evidence for hardware complication. Electronically signed by: Zia Mane M.D. 02/19/2018 12:36 PM Dictated Date/Time: 02/19/2018 12:34 PM
--- NOTE | 2018-02-19 13:04 | Anesthesiology Progress Note ---
Anesthesia Post Op Note Date & Time Feb 19, 2018 at 13:04 Vital Signs Pain Intensity: 0 Vital Signs Past 12 Hours Date Time Temp Pulse Resp B/P (MAP) Pulse Ox O2 Delivery O2 Flow Rate FiO2 02/19/18 12:46 120/68 02/19/18 12:45 36.3 61 12 120/68 94 Nasal Cannula 2 02/19/18 12:42 62 14 02/19/18 12:42 62 14 95 02/19/18 12:41 108/69 02/19/18 12:37 63 16 96 02/19/18 12:37 63 16 02/19/18 12:36 128/72 02/19/18 12:32 62 17 02/19/18 12:32 67 17 02/19/18 12:31 117/72 02/19/18 12:30 61 12 02/19/18 12:30 62 12 93 02/19/18 12:26 103/53 02/19/18 12:25 66 16 02/19/18 12:25 66 16 93 02/19/18 12:21 107/70 02/19/18 12:20 67 14 96 02/19/18 12:20 68 14 02/19/18 12:16 115/71 02/19/18 12:15 65 19 95 02/19/18 12:15 64 19 02/19/18 12:11 114/73 02/19/18 12:10 63 12 98 02/19/18 12:10 64 12 02/19/18 12:06 113/74 02/19/18 12:05 68 18 02/19/18 12:05 67 18 100 02/19/18 12:02 115/71 02/19/18 12:00 36.2 70 16 115/71 99 Oxymask 8 02/19/18 06:44 36.4 75 18 133/83 96 Room Air Notes Mental Status: alert / awake / arousable, participated in evaluation Pt Amnestic to Procedure: Yes Nausea / Vomiting: adequately controlled Pain: adequately controlled Airway Patency, RR, SpO2: stable & adequate BP & HR: stable & adequate Hydration State: stable & adequate Anesthetic Complications: no major complications apparent
[2018-02-19] MEDS: D5W AND 1/2NSS + 20MEQ KCL 1,000 ML IV SCH (14:05)
[2018-02-19] MEDS: ACETAMINOPHEN 500 MG TAB PO SCH (16:10)
[2018-02-19] MEDS: OXYCODONE HCL IR 5 MG TAB (IMMEDIATE RELEASE) PO PRN ×2 (17:32→21:57)
[2018-02-19] MEDS: CEFAZOLIN IV 2,000 MG in SYRINGE 0 ML IV SCH (19:00)
[2018-02-19] MEDS: FERROUS GLUCONATE 324 MG TAB PO SCH (19:01)
[2018-02-19] MEDS: DOCUSATE SODIUM 100 MG CAP PO SCH (20:41)
[2018-02-19] MEDS: ASPIRIN 81 MG ECTAB PO SCH (20:41)
[2018-02-20 00:05] VITALS: O2SAT 96
[2018-02-20] MEDS: D5W AND 1/2NSS + 20MEQ KCL 1,000 ML IV SCH ×2 (00:56→08:46)
[2018-02-20] MEDS: ACETAMINOPHEN 500 MG TAB PO SCH ×3 (00:56→16:13)
[2018-02-20] MEDS: CEFAZOLIN IV 2,000 MG in SYRINGE 0 ML IV SCH (02:13)
[2018-02-20] MEDS: OXYCODONE HCL IR 5 MG TAB (IMMEDIATE RELEASE) PO PRN ×5 (02:29→22:03)
[2018-02-20 03:15] VITALS: BP 123/64; PULSE 71; TEMP 36.5; O2SAT 96
[2018-02-20 06:27] LABS: HEMATOCRIT 39.5 % (42-52); HEMOGLOBIN 13.7 g/dL (14.0-18.0); MEAN CELL VOLUME 85.9 fL (80-100); MEAN CORPUSCULAR HEMOGLOBIN 29.8 pg (25-34); MEAN CORPUSCULAR HGB CONC 34.7 g/dl (32-36); MEAN PLATELET VOLUME 10.3 fL (7.4-10.4); PLATELET COUNT 238 K/uL (130-400); RED CELL DISTRIBUTION WIDTH CV 13.5 % (11.5-14.5); RED CELL DISTRIBUTION WIDTH SD 42.3 fL (36.4-46.3); WHITE BLOOD COUNT 17.17 K/uL (4.8-10.8)
[2018-02-20 06:53] LABS: CALCIUM 8.5 mg/dl (8.5-10.1); CREATININE 0.91 mg/dl (0.60-1.40); POTASSIUM 4.3 mmol/L (3.5-5.1)
[2018-02-20 07:25] VITALS: BP 120/76; PULSE 67; TEMP 36.5; O2SAT 96
[2018-02-20] MEDS ORDERED: DEXAMETHASONE 4 MG TAB PO SCH (07:30)
[2018-02-20] MEDS: FERROUS GLUCONATE 324 MG TAB PO SCH ×3 (07:38→17:54)
[2018-02-20] MEDS: MULTIVITAMIN TAB PO SCH (08:45)
[2018-02-20] MEDS: DOCUSATE SODIUM 100 MG CAP PO SCH ×2 (08:45→21:03)
[2018-02-20] MEDS: PANTOprazole SOD 40 MG TAB PO SCH (08:46)
[2018-02-20] MEDS: ASPIRIN 81 MG ECTAB PO SCH ×2 (08:46→21:03)
--- NOTE | 2018-02-20 09:38 | Orthopedic Progress Note ---
Orthopedic Progress Note Date of Service Feb 20, 2018. Subjective Post OP Day: 1 Reports: feeling well, pain controlled w PO medications, Denies: chest pain, SOB , nausea / vomiting, light headedness, calf pain Objective calves soft nontender, N/V intact, capillary refill less than 2 sec., dressing C /D/I, A&O x3, toes mobile, hemovac drainage Date Time Temp Pulse Resp B/P (MAP) Pulse Ox O2 Delivery O2 Flow Rate FiO2 02/20/18 07:29 Room Air 02/20/18 07:25 36.5 67 16 120/76 (91) 96 Room Air 02/20/18 03:15 36.5 71 16 123/64 (83) 96 Room Air 02/20/18 00:05 96 Room Air 2.0 02/19/18 22:50 36.4 78 16 144/83 (103) 96 Room Air 02/19/18 20:25 36.5 80 18 143/83 (103) 95 02/19/18 16:10 Room Air 02/19/18 16:03 36.6 75 18 145/89 (107) Room Air 97.0 02/19/18 15:01 36.5 78 16 145/78 (100) 92 Room Air 02/19/18 14:03 63 16 116/72 (87) 95 2.0 02/19/18 13:34 63 16 111/72 (85) 95 2.0 02/19/18 13:05 36.6 66 16 119/76 (90) 96 Nasal Cannula 2.0 02/19/18 13:05 96 Nasal Cannula 2.0 02/19/18 13:05 96 Nasal Cannula 2.0 02/19/18 12:46 120/68 02/19/18 12:45 36.3 61 12 120/68 94 Nasal Cannula 2 02/19/18 12:42 62 14 02/19/18 12:42 62 14 95 02/19/18 12:41 108/69 02/19/18 12:37 63 16 96 02/19/18 12:37 63 16 02/19/18 12:36 128/72 02/19/18 12:32 62 17 02/19/18 12:32 67 17 02/19/18 12:31 117/72 02/19/18 12:30 61 12 02/19/18 12:30 62 12 93 02/19/18 12:26 103/53 02/19/18 12:25 66 16 02/19/18 12:25 66 16 93 02/19/18 12:21 107/70 02/19/18 12:20 67 14 96 02/19/18 12:20 68 14 02/19/18 12:16 115/71 02/19/18 12:15 65 19 95 02/19/18 12:15 64 19 02/19/18 12:11 114/73 02/19/18 12:10 63 12 98 02/19/18 12:10 64 12 02/19/18 12:06 113/74 02/19/18 12:05 68 18 02/19/18 12:05 67 18 100 02/19/18 12:02 115/71 02/19/18 12:00 36.2 70 16 115/71 99 Oxymask 8 Laboratory Results 24 Hours: Test 02/20/18 06:13 Hematocrit 39.5 % Hemoglobin 13.7 g/dL Assessment & Plan Plan: POD #1 Left TKA Plan for discharge home tomorrow with OPPT DENISE/SCD ASA Inhouse Planning Pain Management: PO Tylenol, Oxy IR DVT Prophylaxis: TEDs, SCDs, ASA Discharge Planning Discharge Planning: home with oppt Pain Management: PO Tylenol, Oxy IR DVT Prophylaxis: TEDs, ASA
[2018-02-20] MEDS ORDERED: ASPI-320 PO (09:42)
[2018-02-20] MEDS ORDERED: FRRG PO (09:42)
[2018-02-20] MEDS ORDERED: CLB200 PO (09:42)
[2018-02-20] MEDS ORDERED: RXC5 PO (09:42)
[2018-02-20] MEDS ORDERED: ONDA-170 PO (09:42)
[2018-02-20] MEDS ORDERED: ACET-24 PO (09:42)
--- NOTE | 2018-02-20 09:47 | Discharge Instructions ---
Discharge Instructions Date of Service Feb 20, 2018. Admission Reason for Admission: Left Knee Osteoarthritis Discharge Discharge Diagnosis / Problem: left TKA Discharge Goals Goal(s): Decrease discomfort, Improve function, Therapeutic intervention Activity Recommendations Activity Limitations: per Instructions/Follow-up section . Instructions / Follow-Up Instructions / Follow-Up ACTIVITY RECOMMENDATIONS: SELF CARE INSTRUCTIONS AFTER TOTAL KNEE REPLACEMENT A. You may need to continue a physical therapy program after discharge from the hospital. There are several options available to you. Your doctor will assist you in selecting the best one for you. 1. An out-patient facility 2 to 3 times a week for therapy or home therapy. 2. Continue working on all exercises taught to you in the hospital. Your goals should be to increase bending of your knee to 90 degrees and beyond and to fully straighten your knee. B. You may progress at your own pace from walking with a walker or crutches to a cane; then to no assistive devices. C. Make walking a part of your daily routine. Be up as much as comfortable with rest periods throughout the day. Rest with leg elevation is very important. Use the ice wrap frequently for the first 3-4 weeks. D. There are no restrictions on activities. You may ride in a car, shop, participate in nuclear process engineer and all social activities. E. Wear the long elastic stockings (DENISE hose) 20 hours a day for one month after surgery. They can be removed several times a day for laundering and for a bath. F. Do not place a pillow behind your knee when resting. A pillow at your ankle is okay. SPECIAL CARE INSTRUCTIONS: VERY IMPORTANT TO READ AND REVIEW A. Take Coumadin, Aspirin or Lovenox (blood thinning medications) as directed by your doctor. If on Coumadin, have a pro-time (blood test) drawn according to your doctor's instructions. This will tell the doctor how well the Coumadin is thinning your blood. B. There are a few signs you need to watch for after you are home. Call [facility] if you notice any of the followin. Increased severe knee pain. Some pain is expected especially when you exercise. 2. Increased swelling in your leg or knee; pain or swelling of the calf muscle in either lower leg. 3. Any fluid drainage from the incision. 4. Shortness of breath or chest pain. C. Please call [facility] at if you have any concerns or questions about your operation or recovery. The doctor or his nurse will return your call promptly. D. You must take antibiotics before dental work, bladder, bowel or other surgery. Your doctor will provide you with a permanent care to carry describing this precaution. * CALL IF INCREASED PAIN, REDNESS, DRAINAGE OR FEVER GREATER THAT 101. * WEAR DENISE HOSE 20 HOURS PER DAY FOR 4 WEEKS. FOLLOW UP VISIT: Your first 2 appointments have already been scheduled for you and are included in your pre-op packet. If you are unsure of the dates of these appointments or to make changes , please call as soon as possible. Current Hospital Diet Patient's current hospital diet: Regular Diet Discharge Diet Recommended Diet: Regular Diet Procedures Procedures Performed: Left total knee arthroplasty Pending Studies Studies pending at discharge: no Laboratory Results Hemoglobin A1c Test 01/25/18 11:15 Range/Units Estimated Average Glucose 123 mg/dl Hemoglobin A1c 5.9 H 4.5-5.6 % Medical Emergencies . Who to Call and When: Medical Emergencies: If at any time you feel your situation is an emergency, please call 911 immediately. . Non-Emergent Contact Non-Emergency issues call your: Primary Care Provider . "Provider Documentation" section prepared by Dulce Maria Bledsoe. . [place] Drug Monitoring Program Search Results: patient reviewed within database, no issues identified
--- NOTE | 2018-02-20 09:48 | Discharge Instructions ---
Discharge Instructions Date of Service Feb 20, 2018. Admission Reason for Admission: Left Knee Osteoarthritis Discharge Discharge Diagnosis / Problem: left TKA Discharge Goals Goal(s): Decrease discomfort, Improve function, Increase independence, Therapeutic intervention Activity Recommendations Activity Limitations: per Instructions/Follow-up section . Instructions / Follow-Up Instructions / Follow-Up ACTIVITY RECOMMENDATIONS: SELF CARE INSTRUCTIONS AFTER TOTAL KNEE REPLACEMENT A. You may need to continue a physical therapy program after discharge from the hospital. There are several options available to you. Your doctor will assist you in selecting the best one for you. 1. An out-patient facility 2 to 3 times a week for therapy or home therapy. 2. Continue working on all exercises taught to you in the hospital. Your goals should be to increase bending of your knee to 90 degrees and beyond and to fully straighten your knee. B. You may progress at your own pace from walking with a walker or crutches to a cane; then to no assistive devices. C. Make walking a part of your daily routine. Be up as much as comfortable with rest periods throughout the day. Rest with leg elevation is very important. Use the ice wrap frequently for the first 3-4 weeks. D. There are no restrictions on activities. You may ride in a car, shop, participate in storm chaser and all social activities. E. Wear the long elastic stockings (DENISE hose) 20 hours a day for 2 weeks after surgery. They can be removed several times a day for laundering and for a bath. F. You may shower, no tub baths until cleared by your doctor. SPECIAL CARE INSTRUCTIONS: VERY IMPORTANT TO READ AND REVIEW A. There are a few signs you need to watch for after you are home. Call [facility] [place] if you notice any of the followin. Increased severe knee pain. Some pain is expected especially when you exercise. 2. Increased swelling in your leg or knee; pain or swelling of the calf muscle in either lower leg. 3. Any fluid drainage from the incision. 4. Shortness of breath or chest pain. B. Please call [facility] [place] at if you have any concerns or questions about your operation or recovery. The doctor or his nurse will return your call promptly. C. You must take antibiotics before dental work, bladder, bowel or other surgery. Your doctor will provide you with a permanent care to carry describing this precaution. IMPORTANT: * REMEMBER TO TAKE ASPIRIN, 81 MG, TWICE DAILY FOR 4 WEEKS UNLESS OTHERWISE DIRECTED. THIS IS YOUR BLOOD THINNER. * HIGH RISK PATIENTS MAY BE PRESCRIBED A STRONGER BLOOD THINNER. THIS WILL BE PROVIDED AT DISCHARGE. * CALL IF INCREASED PAIN, REDNESS, DRAINAGE OR FEVER GREATER THAT 101. * WEAR DENISE HOSE 20 HOURS PER DAY FOR 2 WEEKS. * YOU MAY HAVE A LARGE BAND-AID LIKE DRESSING (SILVERON). THIS WILL REMAIN ON YOUR INCISION FOR 7 DAYS, THEN CAN BE REMOVED. IF INCISION IS LEAKING THROUGH DRESSING, CALL THE OFFICE . FOLLOW UP VISIT: If appointment is not already scheduled: Please call [facility] [place] to make a follow-up appointment for 2 weeks after your surgery at . Current Hospital Diet Patient's current hospital diet: Regular Diet Discharge Diet Recommended Diet: Regular Diet Procedures Procedures Performed: Left total knee arthroplasty Pending Studies Studies pending at discharge: no Laboratory Results Hemoglobin A1c Test 01/25/18 11:15 Range/Units Estimated Average Glucose 123 mg/dl Hemoglobin A1c 5.9 H 4.5-5.6 % Medical Emergencies . Who to Call and When: Medical Emergencies: If at any time you feel your situation is an emergency, please call [phone] immediately. . Non-Emergent Contact Non-Emergency issues call your: Primary Care Provider . "Provider Documentation" section prepared by Dulce Maria Bledsoe. . [place] Drug Monitoring Program Search Results: patient reviewed within database, no issues identified
[2018-02-20 12:05] VITALS: BP 121/74; PULSE 63; TEMP 36.6; O2SAT 97
[2018-02-20 15:22] VITALS: BP 116/75; PULSE 84; TEMP 36.5; O2SAT 97
[2018-02-20 22:46] VITALS: BP 118/74; PULSE 73; TEMP 36.5; O2SAT 95
[2018-02-21 00:05] VITALS: O2SAT 96
[2018-02-21] MEDS: ACETAMINOPHEN 500 MG TAB PO SCH ×2 (00:12→07:18)
[2018-02-21] MEDS: OXYCODONE HCL IR 5 MG TAB (IMMEDIATE RELEASE) PO PRN ×3 (02:21→10:25)
[2018-02-21 06:32] VITALS: BP 120/70; PULSE 72; TEMP 36.6; O2SAT 97
[2018-02-21] MEDS: ASPIRIN 81 MG ECTAB PO SCH (07:18)
[2018-02-21] MEDS: FERROUS GLUCONATE 324 MG TAB PO SCH (07:18)
[2018-02-21] MEDS: DOCUSATE SODIUM 100 MG CAP PO SCH (07:18)
[2018-02-21] MEDS: MULTIVITAMIN TAB PO SCH (07:19)
[2018-02-21] MEDS: PANTOprazole SOD 40 MG TAB PO SCH (07:19)
--- NOTE | 2018-02-21 09:15 | Orthopedic Progress Note ---
Orthopedic Progress Note Date of Service Feb 21, 2018. Subjective Post OP Day: 2 Reports: feeling well, pain controlled w PO medications, Denies: chest pain, SOB , nausea / vomiting, light headedness, calf pain Objective calves soft nontender, N/V intact, capillary refill less than 2 sec., dressing C /D/I (silverlon), A&O x3, toes mobile Date Time Temp Pulse Resp B/P (MAP) Pulse Ox O2 Delivery O2 Flow Rate FiO2 02/21/18 06:32 36.6 72 16 120/70 (87) 97 Room Air 02/21/18 00:05 96 Room Air 2.0 02/20/18 22:46 36.5 73 16 118/74 (89) 95 Room Air 02/20/18 16:00 Room Air 02/20/18 15:22 36.5 84 18 116/75 (89) 97 02/20/18 12:05 36.6 63 16 121/74 (90) 97 Room Air Assessment & Plan Plan: POD #2 Left TKA Plan for discharge home today with OPPT DENISE/SCD ASA Inhouse Planning Pain Management: PO Tylenol, Oxy IR DVT Prophylaxis: TEDs, SCDs, ASA Discharge Planning Discharge Planning: home with oppt Pain Management: PO Tylenol, Oxy IR DVT Prophylaxis: TEDs, ASA Therapy: Physical Therapy
[2018-02-21 10:33] VITALS: BP 120/70; PULSE 72; TEMP 36.6; O2SAT 97
--- NOTE | 2018-02-22 14:03 | DISCHARGE SUMMARY ---
DISCHARGE DIAGNOSIS: Degenerative joint disease, left knee. SECONDARY DIAGNOSES: Sleep apnea, gastroesophageal reflux disease, osteoarthritis, BPH, history of shortness of breath. CONSULTS: None. COMPLICATIONS: None. PROCEDURES: Left total knee arthroplasty performed by Dr. Melo on 02/19/2018. BRIEF HISTORY: As dictated in the history and physical. HOSPITAL SUMMARY: The patient was admitted on the above date and had the above noted surgery performed which he tolerated well. On the first postoperative day, he was feeling well, and pain was controlled. Calves were soft, nontender, neurovascularly intact. Dressings are clean, dry, and intact. Toes are mobile. Vital signs were stable, and he is afebrile. Hemoglobin was 13.7. The patient was started on physical therapy protocol, continued on DVT prophylaxis and pain management. By the second postoperative day, the patient was feeling well, and pain was controlled. Silverlon dressing was intact. Toes were mobile. Neurovascular is intact. Calves are soft and nontender. Vital signs are stable, and he is afebrile. He was progressing well with his physical therapy, and it was felt that he could be discharged to home. For further review, please see chart. LABORATORY AND X-RAY DATA: As per chart. DISCHARGE INSTRUCTIONS: The patient was discharged to home in satisfactory condition on 02/21/2018. Diet is regular. Follow TKA instruction sheets and special care instructions as noted. Follow up with Dr. Melo in 2 weeks. DISCHARGE MEDICATIONS: Acetaminophen 1000 mg p.o. q.8 h. for 30 days, aspirin 81 mg p.o. b.i.d., Celebrex 200 mg p.o. b.i.d. for 30 days, ferrous gluconate 324 mg p.o. t.i.d., Zofran 8 mg p.o. q.8 h. p.r.n. nausea, oxycodone 5-10 mg p.o. q.4 h. p.r.n. Resume home meds as listed and stop taking Meloxicam, and after 30 days, resume once daily dosing of aspirin.
[2018-02-24] MEDS ORDERED: CeleBREX 200 MG CAP PO SCH (21:00)
== END 2018-02-21 10:57 | disposition home or self-care (01) | DRG 470 ==
LOC: C.ACU 06:15 → C.3E 11:32 → ENRESERV 12:18
PROVIDERS: ADMIT Orthopaedic Surgery; ATTEND Orthopaedic Surgery
PROC: 0SRD0J9 Replacement of Left Knee Joint with Synthetic Substitute, Cemented, Open Approach (ICD-10-PCS; principal; 2018-02-19 09:40)
DX: M17.12 Unilateral primary osteoarthritis, left knee (principal); Z96.651 Presence of right artificial knee joint; Z79.1 Long term (current) use of non-steroidal anti-inflammatories (NSAID)